=== PATIENT | female | born 1945 | race African-American/Black ===

== ENCOUNTER 2018-07-08 07:54 | Day surgery (SDC) | payer OTHER, BC ==
[2018-07-07 13:42] VITALS: BMI 34.6
[2018-07-08 10:05] VITALS: TEMP 97.7
[2018-07-08 10:56] VITALS: BP 118/50; PULSE 62
--- NOTE | 2018-07-09 18:01 | PATH ---
Surgical Pathology Report Patient Name: FELISA STAPLETON [facility]. Rec. #: [id number] /Age/Gender: 1945 (Age: 73) / F Account: [id number] Location: U-ENDOSCOPY Taken: 07/08/2018 Received: 07/08/2018 Reported: 07/09/2018 Physicians: Bradley Gastelum M.D. Specimen(s) Received A: 2ND PORTION DUODENUM B: ANTRUM C: GE JUNCTION D: TRANSVERSE COLON Clinical History Anemia, occult GI bleeding, adenoma surveillance Postoperative diagnosis: Hiatal hernia, GERD, gastritis, transverse colon polyps, diverticulosis, hemorrhoids Final Diagnosis A. DUODENUM, SECOND PORTION, BIOPSY: DUODENAL MUCOSA WITHOUT SIGNIFICANT PATHOLOGIC FINDINGS. B. STOMACH, ANTRUM, BIOPSY: GASTRIC ANTRAL MUCOSA WITH MILD CHRONIC GASTRITIS AND INTESTINAL METAPLASIA. IMMUNOHISTOCHEMICAL STAIN FOR H. PYLORI IS NEGATIVE. C. GE JUNCTION, SCHATZKI'S RING, BIOPSY: SQUAMOUS MUCOSA WITH BASAL CELL HYPERPLASIA CONSISTENT WITH MILD REFLUX ESOPHAGITIS. 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 NO DYSPLASIA IDENTIFIED. D. TRANSVERSE COLON, POLYP, BIOPSY: TUBULAR ADENOMA. Electronically Signed Erna Hdez M.D. Gross Description A. Received in formalin, labeled "biopsy second portion of duodenum" are 3 lorenzo, irregular portions of soft tissue ranging from 0.2-0.5 cm. in greatest dimension. The specimens are submitted in toto in one cassette. B. Received in formalin, labeled "biopsy antrum" are 3 lorenzo, irregular portions of soft tissue ranging from 0.1-0.7 cm. in greatest dimension. The specimens are submitted in toto in one cassette. C. Received in formalin, labeled "biopsy GE junction and Schatzki's ring" are 5 lorenzo, irregular portions of soft tissue ranging from 0.2-0.7 cm. in greatest dimension. The specimens are submitted in toto in one cassette. D. Received in formalin, labeled "biopsy transverse colon polyp" are 4 lorenzo, irregular portions of soft tissue ranging from 0.2-0.4 cm. in greatest dimension. The specimens are submitted in toto in one cassette. DL/07/08/2018 saudi07/08/2018
== END 2018-07-08 10:56 | disposition home or self-care (01) ==
LOC: JASU-ENDO 07:54
PROVIDERS: ATTEND Internal Medicine Gastroenterology
PROC: 0DB98ZX Excision of Duodenum, Via Natural or Artificial Opening Endoscopic, Diagnostic (ICD-10-PCS; 2018-07-08)
PROC: 0DB68ZX Excision of Stomach, Via Natural or Artificial Opening Endoscopic, Diagnostic (ICD-10-PCS; 2018-07-08)
PROC: 0DB48ZX Excision of Esophagogastric Junction, Via Natural or Artificial Opening Endoscopic, Diagnostic (ICD-10-PCS; 2018-07-08)
PROC: 0DBL8ZX Excision of Transverse Colon, Via Natural or Artificial Opening Endoscopic, Diagnostic (ICD-10-PCS; principal; 2018-07-08 08:30)
DX: D64.9 Anemia, unspecified (principal); R19.5 Other fecal abnormalities; D12.3 Benign neoplasm of transverse colon; K57.30 Diverticulosis of large intestine without perforation or abscess without bleeding; K64.8 Other hemorrhoids; K44.9 Diaphragmatic hernia without obstruction or gangrene; K22.2 Esophageal obstruction; K29.50 Unspecified chronic gastritis without bleeding; K21.0 Gastro-esophageal reflux disease with esophagitis; K31.89 Other diseases of stomach and duodenum
CPT/HCPCS: 88305-TC; 88342-TC

== ENCOUNTER → 2023-04-02 | Day surgery (SDC) | payer OTHER, MEDICARE | END | disposition home or self-care (01) | LOC: JRADUS-SUR 12:08 | PROVIDERS: ATTEND Obstetrics & Gynecology | PROC: 0H9T3ZX Drainage of Right Breast, Percutaneous Approach, Diagnostic (ICD-10-PCS; principal; 2023-04-02) | DX: N60.11 Diffuse cystic mastopathy of right breast (principal); Z85.3 Personal history of malignant neoplasm of breast | CPT/HCPCS: 19083; 77065-TC; 87899; A4648 ==